=== PATIENT | female | born 1995 | race Caucasian/White ===

== ENCOUNTER 2017-07-05 09:50 | Emergency (ER) | payer BC ==
[2017-07-05 10:02] VITALS: BP 127/83
--- NOTE | 2017-07-05 10:36 | UC ---
Respiratory Complaint HPI - HPI Summary HPI Summary: 1 WEEK OF COLD SX - COUGH, CONGESTION, DRAINAGE. HAD N/V/D FOR A COUPLE OF DAYS AT THE START BUT NOW RESOLVED. FEVER YESTERDAY AND TODAY. LAST DOSE IBUPROFEN 2 HRS AGO. - History of Current Complaint Chief Complaint: UCGeneralIllness Stated Complaint: CHEST CONGESTION/SINUS Time Seen by Provider: 07/05/17 10:17 Hx Obtained From: Patient Hx Last Menstrual Period: 06/29/17 Onset/Duration: Gradual Onset, Lasting Days, Still Present Timing: Constant Severity Initially: Moderate Severity Currently: Moderate Pain Intensity: 5 Pain Scale Used: 0-10 Numeric Character: Cough: Nonproductive Aggravating Factors: Nothing Alleviating Factors: Nothing Associated Signs And Symptoms: Positive: URI, Nasal Congestion - Allergies/Home Medications Allergies/Adverse Reactions: Allergies Allergy/AdvReac Type Severity Reaction Status Date / Time Cefprozil [From Cefzil] Allergy Intermediate Rash Verified 07/05/17 10:01 Home Medications: Home Medications Norgestimate-Ethinyl Estradiol [[place]-Linyah 0.25-35 mg-Mcg] 1 tab PO DAILY 07/05 [History Confirmed 07/05/17] PMH/Surg Hx/FS Hx/Imm Hx Previously Healthy: Yes - Surgical History Surgical History: Yes Surgery Procedure, Year, and Place: appy. Left wrist surgery. wisdom teeth - Family History Known Family History: Negative: Hypertension Family History: non contributory - Social History Alcohol Use: Occasionally Substance Use Type: None Smoking Status (MU): Never Smoked Tobacco - Immunization History Most Recent Influenza Vaccination: NOT UTD Most Recent Tetanus Shot: utd Most Recent Pneumonia Vaccination: none Review of Systems Constitutional: Fever, Fatigue ENT: Ear Ache, Nasal Discharge Respiratory: Cough Cardiovascular: Negative Gastrointestinal: Negative All Other Systems Reviewed And Are Negative: Yes Physical Exam Triage Information Reviewed: Yes Appearance: Well-Appearing, No Pain Distress, Well-Nourished Vital Signs: Initial Vital Signs Temp 98.4 F 07/05/17 09:58 Pulse 69 07/05/17 09:58 Resp 16 07/05/17 09:58 BP 127/83 07/05/17 09:58 Pulse Ox 100 07/05/17 09:58 Vital Signs Reviewed: Yes Eyes: Positive: Conjunctiva Clear ENT: Positive: Hearing grossly normal, Pharynx normal, TMs normal Neck: Positive: Supple, Nontender, No Lymphadenopathy Respiratory Exam: Normal Cardiovascular Exam: Normal Abdomen Description: Positive: Soft Musculoskeletal: Positive: No Edema Neurological: Positive: Alert Psychological: Positive: Age Appropriate Behavior Skin: Negative: rashes UC Diagnostic Evaluation - Laboratory O2 Sat by Pulse Oximetry: 100 Respiratory Course/Dx - Differential Dx/Diagnosis Provider Diagnoses: ACUTE VIRAL SYNDROME Discharge - Discharge Plan Condition: Stable Disposition: HOME Prescriptions: Guaifenesin-Codeine [Codeine/Guaifenesin 100-10 mg/5Ml] 5 - 10 ml PO Q6H PRN # 150 ml MDD 40ML PRN Reason: Cough Patient Education Materials: Viral Syndrome (ED) Forms: *Work Release Referrals: Nancy Erickson MD [Primary Care Provider] - If Needed Additional Instructions: VIRAL SYNDROME: The physician has diagnosed a viral infection. Viruses not only cause "colds," but can cause many different symptoms including generalized aching, fever, headache, cough, diarrhea, nausea, vomiting, and fatigue. The treatment, for the most part, is simply relief of symptoms. This means that antibiotics are usually not given. Rest, fluids, pain medications and, occasionally, medication for the specific symptoms that are most bothersome will be prescribed. Contact the physician if you develop any new or unusual symptoms such as severe headache, stiff neck, high fever, chest pain, productive cough, or shortness of breath. You should be rechecked if you don't see marked improvement within seven to 10 days. YOUR SYMPTOMS ARE LIKELY VIRALLY MEDIATED AND SHOULD RESOLVE ON THEIR OWN WITH TIME. REST, HYDRATE, OTC MEDS NEEDED. WILL GIVE COUGH MEDICINE TO USE NEEDED. SEEK FOLLOW-UP IF YOU ARE NOT IMPROVING OVER THE NEXT 1-2 WEEKS.
== END 2017-07-05 10:57 | disposition home or self-care (01) ==
LOC: UCEAST 09:50
DX: B34.9 Viral infection, unspecified (principal); Z88.1 Allergy status to other antibiotic agents
CPT/HCPCS: 99212; G0463

== ENCOUNTER 2019-01-12 22:47 | Inpatient (IN) | payer BC ==
--- NOTE | 2019-01-12 23:36 | PN ---
Progress Note - Progress Note Date of Service: 01/12/19 Note: S: Patient reports ctx starting this afternoon, becoming stronger and closer together. She reports several "gushes" of clear fluid, though uncertain if related to peeing or not. O: 2cm/90%/vtx -2 BP 136/67, afebrile FHT 125, +accels, no decels, mod henny UCs q 4-5 min A: IUP in early vs prodromal labor P: Plan to keep her here next 2 hours to reassess then consider admission vs going home
[2019-01-13] MEDS ORDERED: Lactated Ringers 1000 ML Bag* 1,000 ML IV ONE ×2 (00:03→07:13)
[2019-01-13] MEDS ORDERED: Buffered Lidocaine 1% SYRIN* 1 ML/SYRINGE INTRADERM ONE (00:03)
--- NOTE | 2019-01-13 00:18 | HP ---
General Information - Reason for Visit Small gush of fluid X2-3, contractions increasing in intensity. - General Information Maternal Age: 23 Grav: 1 Para: 0 SAB: 0 IEA: 0 Determined By: LMP Maternal Blood Type and Rh: A Negative - Results this Serology/RPR Result: Non-Reactive Rubella Result: Immune HBsAg Result: Negative HIV Result: Negative GBS Culture Result: Negative Past Medical History Delivery History: See Records Delivery History Comment: No previous pregnancies Pertinent Past Medical History: Non-Contributory Pertinent Past Surgical History: See Records Past Surgical History Comment: Lap Appendectomy 2008 Ganglion cyst L wrist 2013 [place] teeth 2016 Pertinent Family History: Non-Contributory Family History Comment: Diabetes Heart dz Stroke - Antepartal Records Antepartal Records: Reviewed, Uncomplicated Review of Systems Constitutional: Uncomfortable CV Complaint: No Respiratory: Shortness of Breath: No Exam Allergies/Adverse Reactions: Allergies cefprozil [From Cefzil] Allergy (Verified 01/12/19 23:40) Hives BP 136/67 T 98.6 HR 89 RR 17 O2 100 Lab Values - Entire Visit: Laboratory Tests 01/12/19 23:16 Vag Amniotic Fld Detect Positive - Measurements Height: 5 ft 5 in Weight: 208 lb Weight in lbs: 208.140083 Body Mass Index (BMI): 34.6 Pre- Weight: 170 lb Weight Gained This : 38 lbs and 0 ozs - Exam Breast: Breast Exam Deferred CVA: No CVA Tenderness Extremities: No Edema Heart: Normal Rhythm/Heart Sounds HEENT: No Significant Findings Lungs: Clear Bilaterally Rectal: Rectal Exam Deferred Reflexes: - - DTR 1+, no clonus Thyroid: - - WNL @ entry to care - Abdominal Exam Abdomen Exam: Non-Tender, Fundal Height Consistent with Dates - Ultrasound/Biophysical Profile Ultrasound Status: Not Done Targeted Exam Findings See L&D Outpatient Visit Provider Note for Findings: Yes Estimated Weight: 8lb Cervical Exam: 2cm Effacement: 90% Station: -2 Presenting Part: Vertex Membrane Status: Questionable SROM Amniotic Fluid Evaluation: Positive ROM Plus Bleeding/Discharge: None EFM Findings - External Monitor Findings Baseline Heart Rate: 120 External Monitor Findings: Accelerations Present, No Pattern of Variable or Late Decelerations, Variability Moderate Contractions: Regular, Moderate, < 45 Seconds Contraction Frequency: Q 3-4 min Assessment/Plan - Assessment IUP @ 40+1 weeks gestation in early labor with spontaneous rupture of membranes. No evidence metabolic acidemia - Plan Plan: Admit - Anticipate Vaginal Delivery Plan Comment: Admit to L&D. PARQ discussion of therapeutic rest with nubain/phenergain, patient agrees. Will likely desire epidural. Anticipate SVB - Date/Time of Admission Date of Admission: 01/12/19 Time of Admission: 23:59
[2019-01-13] MEDS ORDERED: Lactated Ringers 1000 ML Bag* 1,000 ML IV SCH ×3 (01:00→13:00)
[2019-01-13] MEDS ORDERED: Nalbuphine* 10 MG/ML 1 ML VIAL IV PRN (01:35)
[2019-01-13] MEDS ORDERED: Promethazine INJ(RESTRICTED)* 25 MG/ML 1 ML VIAL IV PRN (01:35)
[2019-01-13 01:46] LABS: ABS Basophils 0.1 10^3/ul (0-0.2); ABS Lymphocytes 2.7 10^3/ul (1.0-4.8); ABS Neutrophils 12.3 10^3/ul (1.5-7.7); Eosinophil % 0.2 %; Hematocrit 40 % (35-47); Hemoglobin 13.5 g/dL (12.0-16.0); Lymphocyte % 16.7 %; Mean Corpuscular HGB Conc 34 g/dL (31-36); Mean Corpuscular Hemoglobin 30 pg (27-31); Mean Corpuscular Volume 89 fL (80-97); Mean Platelet Volume 10.2 fL (7.4-10.4); Platelet Count 203 10^3/uL (150-450); Red Blood Count 4.49 10^6 /uL (3.70-4.87); Red Cell Distribution Width 14 % (10-15); White Blood Count 16.1 10^3/uL (3.5-10.8)
[2019-01-13] MEDS ORDERED: OBEPIDURAL* 250 ML EPIDURAL ONE (06:20)
--- NOTE | 2019-01-13 06:51 | PN ---
Progress Note - Progress Note Date of Service: 01/13/19 - Note time 0545 Note: S: Patient had nubain/phenergan with some relief, slept a short time. Also tried tub with good effect. Would like to consider epidural. O: 6cm/100/0, bulging bag FHT 130 +accels, no decels, mod henny UCs q 3-4 min BP 120/60, T 98.4 A: IUP in active labor No evidence metabolic acidemia P: Discussion of pain management options, patient desires epidural. Anesthesia notified.
[2019-01-13] MEDS ORDERED: Famotidine TAB* 20 MG PO PRN (07:13)
[2019-01-13] MEDS ORDERED: Sodium Citrate/Citric Acid* 15 ML UDC PO PRN (07:13)
[2019-01-13] MEDS ORDERED: Phenylephrine 40 MCG/ML SYRINGE IV PUSH PRN (07:13)
[2019-01-13] MEDS ORDERED: OBEPIDURAL* 250 ML EPIDURAL SCH (08:00)
[2019-01-13 08:27] LABS: Urine Benzodiazepine Screen None Detected (None Detect); Urine Opiates Screen None Detected (None Detect)
--- NOTE | 2019-01-13 08:53 | PN ---
Progress Note - Progress Note Date of Service: 01/13/19 Note: S: Patient resting in bed with CEI infusing. Feels some pressure with contractions. Comfortable - able to rest. O: 7cm/100/0, AROM, clear fluid FHT 130 +accels, moderate variability, occasional late deceleration resolves, early decelerations UCs q 3-4 min BP 112/73, T 98.6 A: IUP in active labor No evidence metabolic acidemia VSS Regular contractions P: VE prn anticipate progression to
--- NOTE | 2019-01-13 09:39 | PN ---
Progress Note - Progress Note Date of Service: 01/13/19 Note: S: Patient resting in bed with CEI infusing. Feeling pressure, requesting VE. O: 8cm/100/0, AROM, clear fluid FHT 130 +accels, moderate variability, occasional early decel UCs q2 min BP 112/73, T 98.6 A: IUP in active labor No evidence metabolic acidemia VSS Regular contractions P: VE prn anticipate progression to
--- NOTE | 2019-01-13 10:22 | PN ---
Progress Note - Progress Note Date of Service: 01/13/19 Note: S: Patient resting in bed with CEI infusing. Called to the bedside by RN for deceleration. O: 9cm/100/0, AROM, clear fluid FHT 140 +accels, moderate variability, prolonged decel, return to baseline over 1 min UCs q2-3 min BP 112/73, T 98.6 A: IUP in active labor Clear fluid, afebrile Making cervical change No evidence metabolic acidemia Pt in left lateral, O2 by face mask Regular contractions P: VE prn anticipate progression to
--- NOTE | 2019-01-13 11:04 | PN ---
Progress Note - Progress Note Date of Service: 01/13/19 Note: S: Patient resting in bed with CEI infusing. Called to the bedside by RN for deceleration. Pt feeling constant pressure and urge to push. O: 9.5cm/100/0, AROM, clear fluid FHT 150, +accels, moderate variability, prolonged decel, sosa 90, return to baseline over 1 min UCs q2-3 min BP 112/73, T 98.6 A: IUP in active labor Clear fluid, afebrile Making cervical change No evidence metabolic acidemia Pt in left lateral, O2 by face mask Regular contractions P: VE prn Position changes every 15 mins; peanut ball Anticipate progression to
[2019-01-13] MEDS ORDERED: Oxytocin in LR* 20 UNITS/1,000 ML BAG IVPB ONE (11:58)
[2019-01-13] MEDS ORDERED: Acetaminophen TAB* 325 MG PO PRN (12:51)
[2019-01-13] MEDS ORDERED: RHO D Immune Globulin (HUMAN)* 300 MCG = 1,500 I.U. INJ IM ONE (12:51)
[2019-01-13] MEDS ORDERED: Glycerin ADULT SUPP PR PRN (12:51)
[2019-01-13] MEDS ORDERED: Oxytocin in LR* 20 UNITS/1,000 ML BAG IVPB SCH (13:00)
[2019-01-13] MEDS: Ibuprofen TAB* 600 MG PO PRN ×2 (14:35→20:37)
[2019-01-13] MEDS: Docusate CAP* 100 MG PO SCH ×2 (14:35→20:37)
[2019-01-13] MEDS: Dibucaine 1% 28.35 GM TUBE PR PRN (14:37)
[2019-01-13] MEDS: Witch Hazel PAD* JAR TOPICAL PRN (14:37)
--- NOTE | 2019-01-13 15:45 | PROCNOTE ---
[facility] OB: Delivery Note - Delivery A Date of : 01/13/19 Time of : 11:55 [place] Sex: Female Weight at : 8 lb Score 1 Minute: 7 Score 5 Minutes: 9 Gestational Age in Weeks and Days at Delivery: Missing required information. Delivery Method: Spontaneous Vaginal Labor: Spontaneous Amniotic Fluid: Clear Estimated Blood Loss: 300 Anesthesia/Analgesia: CEI for Labor Delivered By: Julienne Ceballos Nursery Level of Nursery: Regular/Bedside - Perineum Perineal Injury: Vaginal Laceration, 2nd Degree Perineal Injury Comment: repair being done by provider at this time. Perineal Repair: By Delivering Practioner - Events Delivery Events of Note: Pitocin Only After Delivery Delivery Events of Note Comment: 40 2/7 weeks - Additional Delivery Notes Additional Delivery Notes: 23 yo at 40+2 weeks admitted in active labor. SROM at 2230 on 01/12, clear fluid. Progressed to complete with CEI infusing. Pt began pushing spontaneously at 1132 on 01/13. of liveborn female at 1155. OA to REHAN, shoulder followed easily, nuchal x1 - reduced on the perineum. Terminal meconium noted. to mother's chest, dried and stimulated with spontaneous cry. 's 7 and 9. weight 8lbs. Cord clamped and cut by delivering provider. Spontaneous nancy delivery of intact placenta at 1159. Active management of 3rd stage, Pitocin infusing, fundus firm. EML 300 mL. After careful inspection, a second degree perineal laceration was identified and repaired in the usual fashion. Normal anatomy restored, hemostasis achieved. formula feeding. Mother and infant in stable condition at time of note.
[2019-01-13] MEDS ORDERED: Simethicone TAB* 80 MG TAB.CHEW PO SCH (17:30)
[2019-01-14] MEDS: Ibuprofen TAB* 600 MG PO PRN ×4 (02:36→20:48)
[2019-01-14 06:51] LABS: ABS Basophils 0.1 10^3/ul (0-0.2); ABS Lymphocytes 3.5 10^3/ul (1.0-4.8); ABS Monocytes 1.3 10^3/ul (0-0.8); ABS Neutrophils 15.6 10^3/ul (1.5-7.7); Eosinophil % 0.2 %; Hematocrit 36 % (35-47); Hemoglobin 12.4 g/dL (12.0-16.0); Lymphocyte % 17.2 %; Mean Corpuscular HGB Conc 35 g/dL (31-36); Mean Corpuscular Hemoglobin 31 pg (27-31); Mean Corpuscular Volume 90 fL (80-97); Platelet Count 190 10^3/uL (150-450); Red Blood Count 4.01 10^6 /uL (3.70-4.87); Red Cell Distribution Width 14 % (10-15); White Blood Count 20.5 10^3/uL (3.5-10.8)
[2019-01-14] MEDS: Docusate CAP* 100 MG PO SCH ×3 (08:34→20:48)
[2019-01-14] MEDS ORDERED: Ferrous Gluconate TAB* 324 MG TAB PO SCH (09:00)
[2019-01-14] MEDS: Dibucaine 1% 28.35 GM TUBE PR PRN (20:48)
[2019-01-14] MEDS: Witch Hazel PAD* JAR TOPICAL PRN (20:48)
[2019-01-15] MEDS: Docusate CAP* 100 MG PO SCH (07:26)
[2019-01-15] MEDS: Ibuprofen TAB* 600 MG PO PRN (07:26)
[2019-01-15 07:48] VITALS: BP 112/58
== END 2019-01-15 10:32 | disposition home or self-care (01) | DRG 560 ==
LOC: MCHOBOUT 22:47 → MCHOB 23:59 → MERGE 23:59 → MCHOB 01-13 15:04
PROVIDERS: ADMIT Midwife; ATTEND Advanced Practice Midwife
PROC: 10E0XZZ Delivery of Products of Conception, External Approach (ICD-10-PCS; principal; 2019-01-13)
PROC: 4A1HXCZ Monitoring of Products of Conception, Cardiac Rate, External Approach (ICD-10-PCS; 2019-01-13)
PROC: 0KQM0ZZ Repair Perineum Muscle, Open Approach (ICD-10-PCS; 2019-01-13)
DX: O48.0 Post-term pregnancy (principal); Z37.0 Single live birth; O69.81X0 Labor and delivery complicated by cord around neck, without compression, not applicable or unspecified; O70.1 Second degree perineal laceration during delivery; O76 Abnormality in fetal heart rate and rhythm complicating labor and delivery; O77.0 Labor and delivery complicated by meconium in amniotic fluid; Z3A.40 40 weeks gestation of pregnancy; Z88.1 Allergy status to other antibiotic agents
CPT/HCPCS: 36415; 80307; 84112; 85025; 86850; 86900; 86901; A9270-GY; J2300; J2550

== ENCOUNTER 2019-04-27 08:38 | Emergency (ER) | payer BC ==
[2019-04-27 08:48] VITALS: BP 128/72
--- NOTE | 2019-04-27 09:01 | UC ---
Hand/Wrist HPI - HPI Summary HPI Summary: Ms. Leblanc is unsure of the mechanism but slipped and fell onto her outstretched right wrist. She is complaining of pain and points to her snuffbox. - History Of Current Complaint Chief Complaint: UCUpperExtremity Stated Complaint: WRIST INJURY Time Seen by Provider: 04/27/19 08:55 Hx Obtained From: Patient Hx Last Menstrual Period: 04/17/19 Onset/Duration: Sudden Onset Severity Initially: Moderate Severity Currently: Moderate Pain Intensity: 7 Character Of Pain: Sharp, Aching Aggravating Factor(s): Movement Alleviating Factor(s): Nothing Associated Signs And Symptoms: Positive: Swelling - Allergies/Home Medications Allergies/Adverse Reactions: Allergies Allergy/AdvReac Type Severity Reaction Status Date / Time cefprozil [From Cefzil] Allergy Hives Verified 04/27/19 08:48 PMH/Surg Hx/FS Hx/Imm Hx Previously Healthy: Yes - Surgical History Surgical History: Yes Surgery Procedure, Year, and Place: appy. Left wrist surgery. wisdom teeth - Family History Known Family History: Positive: None Negative: Hypertension Family History: non contributory - Social History Alcohol Use: Occasionally Substance Use Type: None Smoking Status (MU): Never Smoked Tobacco - Immunization History Most Recent Influenza Vaccination: apr 2018 Most Recent Tetanus Shot: utd Most Recent Pneumonia Vaccination: unsure Review of Systems All Other Systems Reviewed And Are Negative: Yes Motor: Positive: Decreased ROM Neurovascular: Positive: Negative Musculoskeletal: Positive: Decreased ROM Neurological: Positive: Negative Physical Exam - Summary Physical Exam Summary: She is nontoxic in appearance with stable vital signs. Triage Information Reviewed: Yes Appearance: Well-Appearing Vital Signs: Initial Vital Signs Temp 99.1 F 04/27/19 08:44 Pulse 71 04/27/19 08:44 Resp 16 04/27/19 08:44 BP 128/72 04/27/19 08:44 Pulse Ox 100 04/27/19 08:44 Vital Signs Reviewed: Yes Musculoskeletal: Positive: ROM Intact, Other: - She is tender in the snuffbox. Neurological Exam: Normal Psychological Exam: Normal Skin Exam: Normal Diagnostics - Radiology right wrist Radiology Interpretation Completed By: Radiologist Summary of Radiographic Findings: No acute process Hand/Wrist Course/Dx - Course Course Of Treatment: This is a FOOSH injury with snuffbox tenderness. X-rays are negative and I will place her in a thumb spica splint and have her follow up with her PCP - Differential Dx/Diagnosis Provider Diagnosis: Wrist sprain Discharge ED - Sign-Out/Discharge Documenting (check all that apply): Patient Departure All imaging exams completed and their final reports reviewed: Yes - Discharge Plan Condition: Stable Disposition: HOME Patient Education Materials: Wrist Sprain (ED) Referrals: Nancy Erickson MD [Primary Care Provider] - Additional Instructions: It is difficult to diagnose a navicular fracture by x-ray. Since you hurt in that area, we recommend using the splint and following up with your PCP in a week for recheck. - Billing Disposition and Condition Condition: STABLE Disposition: Home
== END 2019-04-27 09:55 | disposition home or self-care (01) ==
LOC: UCEAST 08:38
DX: S63.501A Unspecified sprain of right wrist, initial encounter (principal); W01.0XXA Fall on same level from slipping, tripping and stumbling without subsequent striking against object, initial encounter; Y92.9 Unspecified place or not applicable; Z88.1 Allergy status to other antibiotic agents
CPT/HCPCS: 99212; G0463

== ENCOUNTER 2019-09-29 15:31 | Emergency (ER) | payer BC ==
--- NOTE | 2019-09-29 15:52 | ED ---
Psychiatric Complaint - HPI Summary HPI Summary: 24 year old F with hx anxiety arriving via private car to [facility] complains of having panic attacks and chest pains x1 hour. Patient states she is having marital issues. They are not . They have not attended couple's counseling. She is staying with her parents now. She feels safe there. No suicidal ideation. This has never happened before. She has never seen a therapist before. Medications reviewed. Allergies noted. Home Medications Medication Instructions Recorded Confirmed Type Norgestimate-Ethinyl Estradiol 1 tab PO DAILY 07/05/17 04/27/19 History [[place]-Linyah 28 Tablet] Vitamin TAB* 1 tab PO DAILY 01/12/19 04/27/19 History Acetaminophen TAB* [Tylenol TAB*] 650 mg PO Q4H PRN tab 01/15/19 04/27/19 Rx Ibuprofen TAB* [Motrin TAB* 600 MG] 600 mg PO Q6H PRN tab 01/15/19 04/27/19 Rx - History Of Current Complaint Chief Complaint: EDPsychosocial Time Seen by Provider: 09/29/19 15:45 Hx Obtained From: Patient Onset/Duration: Lasting Hours - 1, Still Present Timing: Constant Severity Currently: None Aggravating Factor(s): Nothing Alleviating Factor(s): Nothing Has Suicidal: Denies: Thoughts - Allergies/Home Medications Allergies/Adverse Reactions: Allergies Allergy/AdvReac Type Severity Reaction Status Date / Time cefprozil [From Cefzil] Allergy Hives Verified 09/29/19 15:37 Home Medications: Home Medications Norgestimate-Ethinyl Estradiol [[place]-Linyah 28 Tablet] 1 tab PO DAILY 07/05/17 [ History Confirmed 04/27/19] Vitamin TAB* 1 tab PO DAILY 01/12/19 [History Confirmed 04/27/19] Acetaminophen TAB* [Tylenol TAB*] 650 mg PO Q4H PRN tab 01/15/19 [Rx Confirmed 04/27/19] Ibuprofen TAB* [Motrin TAB* 600 MG] 600 mg PO Q6H PRN tab 01/15/19 [Rx Confirmed 04/27/19] PMH/Surg Hx/FS Hx/Imm Hx Endocrine/Hematology History: Denies: Hx Diabetes, Hx Thyroid Disease Cardiovascular History: Denies: Hx Hypertension Respiratory History: Denies: Hx Asthma, Hx Chronic Obstructive Pulmonary Disease (COPD) Neurological History: Reports: Hx Migraine Psychiatric History: Reports: Hx Anxiety - Surgical History Surgery Procedure, Year, and Place: appy. Left wrist surgery. wisdom teeth Infectious Disease History: No Infectious Disease History: Denies: Hx Clostridium Difficile, Hx Hepatitis, Hx Human Immunodeficiency Virus (HIV), Hx of Known/Suspected MRSA, Hx Shingles, Hx Tuberculosis, Hx Known/ Suspected VRE, Hx Known/Suspected VRSA, History Other Infectious Disease, Traveled Outside the [place] in Last 30 Days - Family History Known Family History: Negative: Hypertension Family History: non contributory - Social History Alcohol Use: Occasionally Substance Use Type: Reports: None Hx Tobacco Use: No Smoking Status (MU): Never Smoked Tobacco Review of Systems Positive: Chest Pain Positive: Other - panic attacks; NEG: SI All Other Systems Reviewed And Are Negative: Yes Physical Exam - Summary Physical Exam Summary: Constitutional: Well-developed, Well-nourished, Alert. (-) Distressed Skin: Warm, Dry HENT: Normocephalic; Atraumatic Eyes: Conjunctiva normal Neck: Musculoskeletal ROM normal neck. (-) JVD, (-) Stridor, (-) Tracheal deviation Cardio: Rhythm regular, rate normal, Heart sounds normal; Intact distal pulses; The pedal pulses are 2+ and symmetric. Radial pulses are 2+ and symmetric. (-) Murmur Pulmonary/Chest wall: Effort normal. (-) Respiratory distress, (-) Wheezes, (-) Rales Abd: Soft, (-) tenderness, (-) Distension, (-) Guarding, (-) Rebound Musculoskeletal: (-) Edema Lymph: (-) Cervical adenopathy Neuro: Alert, Oriented x3 Psych: Anxious/tearful. No SI. Triage Information Reviewed: Yes Vital Signs On Initial Exam: Initial Vitals Temp Pulse Resp BP Pulse Ox 98.7 F 79 18 139/88 100 09/29/19 15:33 09/29/19 15:33 09/29/19 15:33 09/29/19 15:33 09/29/19 15:33 Vital Signs Reviewed: Yes Procedures - Sedation Patient Received Moderate/Deep Sedation with Procedure: No Diagnostics - Vital Signs Vital Signs Temp Pulse Resp BP Pulse Ox 09/29/19 15:33 98.7 F 79 18 139/88 100 - Laboratory Lab Statement: Any lab studies that have been ordered have been reviewed, and results considered in the medical decision making process. Re-Evaluation - Re-Evaluation First Eval Re-Evaluation Time: 15:55 Comment: psychiatric chartered accountant aware of patient Second Eval Re-Evaluation Time: 16:54 Comment: psychiatric chartered accountant provided outpatient resources Course/Dx - Course Course Of Treatment: 24 y/o F with hx anxiety presents with panic attacks x1 hour. Patient states she is having marital issues. She is staying with her parents now. She feels safe there. No suicidal ideation. This has never happened before. She has never seen a therapist before. She is anxious and tearful. Psychiatric chartered accountant provided patient with outpatient resources. She will be discharged with follow up from the outpatient resources provided to her by psychiatric chartered accountant and from PCP. Patient was instructed to return to Emergency Department for new or worsening symptoms. Patient understands and is agreeable to this plan. - Differential Dx/Clinical Impression Provider Diagnosis: Stress reaction, Panic attack Discharge ED - Sign-Out/Discharge Documenting (check all that apply): Patient Departure - Discharge Plan Condition: Stable Disposition: HOME Patient Education Materials: Panic Attack (ED) Referrals: Nancy Erickson MD [Primary Care Provider] - Additional Instructions: Please follow up with outpatient resources and your primary care provider. Return to the Emergency Department for changing or worsening symptoms. - Billing Disposition and Condition Condition: STABLE Disposition: Home - Attestation Statements Document Initiated by Scribe: Yes Documenting Scribe: Meghna Boykin Provider For Whom Scribe is Documenting (Include Credential): Leo Bush DO Scribe Attestation: Meghna Roth scribed for Leo Bush DO on 09/29/19 at 2046. Scribe Documentation Reviewed: Yes Provider Attestation: The documentation as recorded by the Meghna herrera accurately reflects the service I personally performed and the decisions made by Leo hinson DO Status of [place]rib[place] Document: Viewed
[2019-09-29 17:15] VITALS: BP 128/74
== END 2019-09-29 17:14 | disposition home or self-care (01) ==
LOC: ED 15:31
DX: F43.0 Acute stress reaction (principal); Z88.1 Allergy status to other antibiotic agents
CPT/HCPCS: 99282